=== PATIENT | female | born 1945 | race Caucasian/White ===

== ENCOUNTER 2019-06-15 18:42 | Emergency (ER) | payer MEDICARE, OTHER ==
--- NOTE | 2019-06-15 19:37 | EDM.PDOC ---
ED HPI GENERAL MEDICAL PROBLEM - General Chief Complaint: Gastrointestinal Problem Stated Complaint: TROUBLE BREATHING/BLEEDY STOOL Time Seen by Provider: 06/15/19 19:20 Source of Information: Reports: Patient, Family History Limitations: Reports: No Limitations - History of Present Illness INITIAL COMMENTS - FREE TEXT/NARRATIVE: 74-year-old female who receives a colonoscopy every 5 years because of polyps, has been having rectal bleeding for the last 2 months. She has chronic diarrhea , and is also on liquids for atrial fibrillation. She has no pain. Today she felt woozy and lightheaded and thought she should get it checked. She was trying to wait until July for her physical. She has been told she has hemorrhoids. No chest pain but today he was somewhat short of breath with activity. Onset: Unknown/Unsure (Rectal bleeding has been present for up to 2 months, weakness and dyspnea with activity for the last 24-48 hours) Associated Symptoms: Reports: Malaise, Shortness of Breath (With activity), Weakness, Other (Chronic diarrhea). Denies: Confusion, Chest Pain, Cough, Diaphoresis, Fever/Chills, Nausea/Vomiting Lower Back Pain Score (Numeric/FACES): 6 - Related Data Allergies Allergy/AdvReac Type Severity Reaction Status Date / Time midazolam [From Versed] Allergy Other Verified 06/15/19 19:10 Home Meds: Home Meds Albuterol [Proventil Neb Soln] 2.5 mg PO DAILY 06/15/19 [History] Albuterol/Ipratropium [Combivent Respimat] 1 puff PO DAILY 06/15/19 [History] Apixaban [Eliquis] 5 mg PO BID 06/15/19 [History] Aspirin [Halfprin] 81 mg PO DAILY 06/15/19 [History] Fluticasone/Salmeterol [Advair 250-50 Diskus] 1 disk PO DAILY PRN 06/15/19 [ History] Isosorbide Mononitrate [Imdur] 30 mg PO DAILY 06/15/19 [History] Magnesium 1,200 mg PO DAILY 06/15/19 [History] Metoprolol Tartrate 25 mg PO DAILY 06/15/19 [History] hydroCHLOROthiazide [Hydrochlorothiazide] 25 mg PO DAILY 06/15/19 [History] Past Medical History HEENT History: Reports: Cataract, Impaired Vision Cardiovascular History: Reports: Afib Other Cardiovascular History: CHF Respiratory History: Reports: COPD [place] [employer] History: Reports: - Past Surgical History GI Surgical History: Reports: Cholecystectomy Social & Family History - Tobacco Use Smoking Status *Q: Former Smoker Years of Tobacco use: 45 Used Tobacco, but Quit: Yes Month/Year Tobacco Last Used: 12 years ago - Caffeine Use Caffeine Use: Reports: None - Alcohol Use Days Per Week of Alcohol Use: 2 Number of Drinks Per Day: 2 Total Drinks Per Week: 4 - Recreational Drug Use Recreational Drug Use: No ED ROS GENERAL - Review of Systems Review Of Systems: See Below Constitutional: Reports: Malaise, Decreased Appetite. Denies: Fever, Chills HEENT: Reports: No Symptoms Respiratory: Reports: Shortness of Breath Cardiovascular: Denies: Chest Pain (With activity) GI/Abdominal: Reports: Diarrhea (Chronic), Hematochezia. Denies: Abdominal Pain , Nausea : Reports: No Symptoms Skin: Reports: Pallor Neurological: Reports: No Symptoms ED EXAM, GENERAL - Physical Exam Exam: See Below Exam Limited By: No Limitations General Appearance: Alert, No Apparent Distress Eye Exam: Bilateral Eye: Other (Conjunctiva looks somewhat pale) Throat/Mouth: Normal Inspection Respiratory/Chest: No Respiratory Distress, Chest Non-Tender Cardiovascular: Irregularly Irregular GI/Abdominal: Soft, Other (Some general discomfort with palpation of the lower abdomen but no guarding or focal tenderness) Rectal (Female) Exam: Other (A few external hemorrhoids are seen, on digital exam she is tender, no masses but stool is maroon) Extremities: No: Pedal Edema Neurological: Alert, Oriented Psychiatric: Normal Affect, Normal Mood Skin Exam: Warm, Dry, Pallor (Patient does look somewhat pale) Course - Vital Signs Last Recorded V/S: Last Vital Signs Temp 96.9 F 06/16/19 00:25 Pulse 88 06/16/19 00:21 Resp 16 06/16/19 00:21 BP 125/53 L 06/16/19 00:21 Pulse Ox 98 06/15/19 21:01 - Orders/Labs/Meds Labs: Laboratory Tests 06/15/19 06/15/19 06/15/19 Range/Units 19:40 19:46 19:46 WBC 7.1 (4.5-11.0) K/uL RBC 2.31 L (3.30-5.50) M/uL Hgb 7.4 L (12.0-15.0) g/dL Hct 22.9 L (36.0-48.0) % MCV 99 H (80-98) fL MCH 32 H (27-31) pg MCHC 32 (32-36) % Plt Count 237 (150-400) K/uL Neut % (Auto) 58 (36-66) % Lymph % (Auto) 22 L (24-44) % [place] % (Auto) 18 H (2-6) % Eos % (Auto) 1 L (2-4) % Baso % (Auto) 0 (0-1) % Sodium 135 L (140-148) mmol/L Potassium 3.3 L (3.6-5.2) mmol/L Chloride 96 L (100-108) mmol/L Carbon Dioxide 29 (21-32) mmol/L Anion Gap 13.3 (5.0-14.0) mmol/L BUN 24 H (7-18) mg/dL Creatinine 1.4 H (0.6-1.0) mg/dL Est Cr Clr Drug Dosing 30.44 mL/min Estimated GFR (MDRD) 37 L (>60) Glucose 120 H (74-106) mg/dL Calcium 9.2 (8.5-10.1) mg/dL Blood Type A POSITIVE Gel Antibody Screen Negative Crossmatch See Detail Meds: Medications Discontinued Medications Generic Name Dose Route Start Last Admin Trade Name Freq PRN Reason Stop Dose Admin Sodium Chloride 1,000 mls @ 150 mls/hr 06/15/19 21:00 06/15/19 21:07 Normal Saline IV 150 mls/hr [facility]ED [facility] Administration - Re-Assessments/Exams Free Text/Narrative Re-Assessment/Exam: 06/15/19 19:37 CBC and BMP were obtained. 06/15/19 20:22 Hemoglobin is only 7.4. Patient remained stable. An IV was started in our hospital is full so transfer for inpatient evaluation will be arranged elsewhere. 06/16/19 02:02 Transfer was arranged to [facility], accepted by Dr. Leon at 7:30 PM. One unit of RBCs was typed and crossed transfusion started. She'll be transferred by EMS. Departure - Departure Time of Disposition: 01:30 Disposition: DC/Tfer to [facility], [facility] 02 Clinical Impression: GI bleed Qualifiers: GI bleed type/associated pathology: unspecified gastrointestinal hemorrhage type Qualified Code(s): K92.2 - Gastrointestinal hemorrhage, unspecified - Discharge Information Referrals: PCP,None [Primary Care Provider] - Forms: ED Department Discharge Care Plan Goals: Patient is to be transferred to [facility] by EMS to be admitted for her gastrointestinal blood loss anemia. We have no beds currently at this hospital so transfer was arranged. She will be receiving 1 unit of packed RBCs in route.
[2019-06-15] MEDS ORDERED: Sodium Chloride 0.9% 1,000 ML IV SCH (21:00)
== END 2019-06-16 01:25 ==
LOC: JP.ED 18:42
DX: K92.2 Gastrointestinal hemorrhage, unspecified (principal); J44.9 Chronic obstructive pulmonary disease, unspecified; Z88.4 Allergy status to anesthetic agent; Z87.891 Personal history of nicotine dependence; Z79.51 Long term (current) use of inhaled steroids; Z79.82 Long term (current) use of aspirin; Z79.899 Other long term (current) drug therapy; Z90.49 Acquired absence of other specified parts of digestive tract
CPT/HCPCS: 36415; 36430; 80048; 85025; 86850; 86900; 86901; 86920; 86922; 96360; 96361; 99285; J7030; P9016